=== PATIENT | male | born 1980 | race Caucasian/White ===

== ENCOUNTER → 2018-11-15 | Outpatient (CLI) | payer BC | LOC: HYPER 06:51 | DX: T25.022D Burn of unspecified degree of left foot, subsequent encounter (principal); M79.672 Pain in left foot; X08.8XXD Exposure to other specified smoke, fire and flames, subsequent encounter ==

== ENCOUNTER → 2018-11-27 | Outpatient (CLI) | payer BC | LOC: HYPER 07:04 | DX: T25.322D Burn of third degree of left foot, subsequent encounter (principal); T31.0 Burns involving less than 10% of body surface; X08.8XXD Exposure to other specified smoke, fire and flames, subsequent encounter ==